=== PATIENT | male | born 1945 | race African-American/Black ===

== ENCOUNTER 2018-03-18 09:33 | Emergency (ER) | payer MEDICARE, MEDICAID ==
[~2018-03-18] VITALS: Ht 165.1 cm; Wt 88.5 kg
[2018-03-18 09:39] VITALS: BP 140/77
== END 2018-03-18 11:05 | disposition home or self-care (01) ==
LOC: ER 10:03
DX: R05 Cough (principal); Z77.120 Contact with and (suspected) exposure to mold (toxic); I10 Essential (primary) hypertension; J44.9 Chronic obstructive pulmonary disease, unspecified; F17.200 Nicotine dependence, unspecified, uncomplicated
CPT/HCPCS: 71046; 99283

== ENCOUNTER 2020-01-19 11:22 | Emergency (ER) | payer MEDICARE, MEDICAID ==
[~2020-01-19] VITALS: Ht 162.6 cm; Wt 82.0 kg
[2020-01-19 11:37] VITALS: BP 132/81
== END 2020-01-19 15:29 | disposition home or self-care (01) ==
LOC: ER 11:22
DX: Z04.89 Encounter for examination and observation for other specified reasons (principal); E78.00 Pure hypercholesterolemia, unspecified; F03.90 Unspecified dementia, unspecified severity, without behavioral disturbance, psychotic disturbance, mood disturbance, and anxiety; I10 Essential (primary) hypertension; J44.9 Chronic obstructive pulmonary disease, unspecified; Z86.718 Personal history of other venous thrombosis and embolism; Z79.01 Long term (current) use of anticoagulants; Z87.891 Personal history of nicotine dependence
CPT/HCPCS: 82962; 99281

== ENCOUNTER 2021-06-11 21:41 | Inpatient (IN) | payer MEDICARE, MEDICAID ==
[~2021-06-11] VITALS: Ht 162.6 cm; Wt 85.9 kg
[2021-06-11 22:54] LABS: BASOPHILS % 0.8 % (0.0-2.0); EOSINOPHILS % 0.9 % (0.0-5.0); HEMATOCRIT. 32.8 % (42.0-52.0); HEMOGLOBIN. 10.7 g/dL (14.0-18.0); MEAN CORPUSCULAR HEMOGLOBIN 24.8 pg (28.0-32.0); MEAN CORPUSCULAR VOLUME 76.2 fL (80.0-94.0); MONOCYTES % 10.2 % (2.0-8.0); NEUTROPHILS % 67.1 % (40.0-76.0); PLATELET 257 x1000/uL (130-400); RED CELL DISTRIBUTION WIDTH 17.8 % (11.6-14.6)
[2021-06-11 23:04] LABS: CHLORIDE 102 mEq/L (98-107)
[2021-06-11 23:08] LABS: ETHANOL BLOOD < 10 mg/dL
[2021-06-11] MEDS ORDERED: IOHEXOL-350 100 ML BOTTLE ONE (23:11)
[2021-06-11] MEDS ORDERED: ASPIRIN 325MG TABLET PO ONE (23:15)
[2021-06-11 23:41] LABS: CLARITY URINE CLEAR (CLEAR); COLOR URINE YELLOW (YELLOW); KETONES URINE NEGATIVE (NEGATIVE); LEUKOCYTE ESTERASE URINE NEGATIVE (NEGATIVE); NITRITE URINE NEGATIVE (NEGATIVE); OCCULT BLOOD URINE NEGATIVE (NEGATIVE); PROTEIN URINE TRACE (NEGATIVE); SPECIFIC GRAVITY URINE 1.061 (1.005-1.030)
[2021-06-12 00:03] LABS: *BARBITURATES SCREEN URINE NEGATIVE (NEGATIVE); *BENZODIAZEPINES SCREEN URINE NEGATIVE (NEGATIVE)
[2021-06-12 00:04] LABS: *AMPHETAMINES SCREEN URINE NEGATIVE (NEGATIVE); *COCAINE SCREEN URINE NEGATIVE (NEGATIVE); CANNABINOID URINE SCREEN PRESUMTIVE POSITIVE (NEGATIVE); METHADONE URINE SCREEN NEGATIVE (NEGATIVE); OPIATES URINE SCREEN PRESUMTIVE POSITIVE (NEGATIVE); PHENCYCLIDINE URINE SCREEN NEGATIVE (NEGATIVE)
[2021-06-12 04:52] VITALS: BP 104/64
[2021-06-12 04:53] VITALS: BP 104/64
[2021-06-12] MEDS ORDERED: BENA1TAB19 PO (04:59)
[2021-06-12] MEDS ORDERED: TAMS-11 PO (04:59)
[2021-06-12] MEDS ORDERED: PANT20TA17 PO (04:59)
[2021-06-12] MEDS ORDERED: OXYC-582 PO (04:59)
[2021-06-12] MEDS ORDERED: ATOR20TA65 PO (04:59)
[2021-06-12] MEDS ORDERED: GABA-532 PO (04:59)
[2021-06-12] MEDS ORDERED: FLUT16SP15 INH (04:59)
[2021-06-12] MEDS ORDERED: DONE5TAB33 PO (04:59)
[2021-06-12] MEDS ORDERED: SALM50DI IH (04:59)
[2021-06-12] MEDS ORDERED: OXYC30TA2 PO (04:59)
[2021-06-12] MEDS ORDERED: CLOP75TA33 PO (04:59)
[2021-06-12] MEDS ORDERED: CLONIDINE 0.1MG TABLET PO PRN (07:00)
[2021-06-12] MEDS ORDERED: GUAIFENESIN 200MG/10ML SUGAR FREE UDC PO PRN (07:00)
[2021-06-12] MEDS ORDERED: ACETAMINOPHEN 650MG SUPP PR PRN ×2 (07:00)
[2021-06-12] MEDS ORDERED: IPRATROPIUM/ALBUTEROL 0.5-3(2.5)MG/3ML NEB HHN PRN (07:00)
[2021-06-12] MEDS ORDERED: ACETAMINOPHEN 325MG TABLET PO PRN ×2 (07:00)
[2021-06-12] MEDS ORDERED: DOCUSATE SODIUM 100MG CAPSULE PO PRN (07:00)
[2021-06-12] MEDS ORDERED: MAGNESIUM/ALUMINUM HYDROXIDE/SIMETHICONE 30ML UDC PO PRN (07:00)
[2021-06-12] MEDS ORDERED: ONDANSETRON HCL 4MG/2ML INJ IV PRN (07:00)
[2021-06-12] MEDS ORDERED: ENOXAPARIN 40MG/0.4ML SYR SUBCUT SCH (09:00)
[2021-06-12 10:40] LABS: BASOPHILS % 0.4 % (0.0-2.0); EOSINOPHILS % 0.4 % (0.0-5.0); HEMATOCRIT. 34.8 % (42.0-52.0); HEMOGLOBIN. 11.6 g/dL (14.0-18.0); LYMPHOCYTES % 13.8 % (20.0-50.0); MEAN CORPUSCULAR HEMOGLOBIN 24.9 pg (28.0-32.0); MEAN CORPUSCULAR VOLUME 74.9 fL (80.0-94.0); MONOCYTES % 4.4 % (2.0-8.0); PLATELET 282 x1000/uL (130-400); RED BLOOD CELL COUNT 4.64 mill/uL (4.7-6.1); RED CELL DISTRIBUTION WIDTH 17.8 % (11.6-14.6)
[2021-06-12 12:21] LABS: CHLORIDE 105 mEq/L (98-107)
[2021-06-12 12:29] LABS: HDL CHOLESTEROL 32 mg/dL (40-59); LDL CHOLESTEROL 54 mg/dL (5-100)
[2021-06-12 12:30] LABS: CREATINE KINASE 173 IU/L (39-308)
[2021-06-13] MEDS ORDERED: ASPIRIN 81MG TABLET PO SCH (09:00)
== END 2021-06-12 15:50 | disposition left against medical advice (07) | DRG 69 ==
LOC: ER 21:41 → 6WST 06-12 02:26 → EDBEDREQ 06-12 02:29 → EDBEDREQSVC 06-12 02:29 → EDBEDREQTM 06-12 02:29 → EDBEDREQDT 06-12 02:29 → ENRESERV 06-12 03:58
PROVIDERS: ADMIT Family Medicine Adult Medicine; ATTEND Family Medicine Adult Medicine
DX: G45.9 Transient cerebral ischemic attack, unspecified (principal); G93.41 Metabolic encephalopathy; R47.01 Aphasia; G81.91 Hemiplegia, unspecified affecting right dominant side; R47.1 Dysarthria and anarthria; I10 Essential (primary) hypertension; E78.00 Pure hypercholesterolemia, unspecified; F03.90 Unspecified dementia, unspecified severity, without behavioral disturbance, psychotic disturbance, mood disturbance, and anxiety; J44.9 Chronic obstructive pulmonary disease, unspecified; F17.210 Nicotine dependence, cigarettes, uncomplicated; D64.9 Anemia, unspecified; M54.50 Low back pain, unspecified; F12.90 Cannabis use, unspecified, uncomplicated; R53.81 Other malaise; I25.10 Atherosclerotic heart disease of native coronary artery without angina pectoris; E78.5 Hyperlipidemia, unspecified; G89.4 Chronic pain syndrome; E11.65 Type 2 diabetes mellitus with hyperglycemia; R26.89 Other abnormalities of gait and mobility; F10.10 Alcohol abuse, uncomplicated; Y90.9 Presence of alcohol in blood, level not specified; N40.0 Benign prostatic hyperplasia without lower urinary tract symptoms; R47.81 Slurred speech; Z86.73 Personal history of transient ischemic attack (TIA), and cerebral infarction without residual deficits; Z79.891 Long term (current) use of opiate analgesic; Z79.899 Other long term (current) drug therapy; Z95.5 Presence of coronary angioplasty implant and graft; Z86.718 Personal history of other venous thrombosis and embolism; M79.609 Pain in unspecified limb; F19.10 Other psychoactive substance abuse, uncomplicated
CPT/HCPCS: 36415; 70496; 70498; 70551; 71045; 80053; 80061; 80305; 80320; 81003; 82550; 82962; 84443; 84484; 85025; 93005; 93306; 93970; 97162; 97166; 99291; J1650; Q9967; G0480

== ENCOUNTER 2021-12-09 14:08 | Emergency (ER) | payer OTHER, MEDICAID ==
[~2021-12-09] VITALS: Ht 172.7 cm; Wt 82.0 kg
[~2021-12-09 14:08] MED LIST: ATOR20TA65 PO; BENA1TAB19 PO; CLOP75TA33 PO; DONE5TAB33 PO; FLUT16SP15 INH; GABA-532 PO; OXYC-582 PO; OXYC30TA2 PO; PANT20TA17 PO; SALM50DI IH; TAMS-11 PO
[2021-12-09 14:11] VITALS: BP 116/60
[2021-12-09] MEDS ORDERED: SODIUM CHLORIDE 0.9% 500 ML IV ONE (15:00)
[2021-12-09 15:21] LABS: BASOPHILS % 0.6 % (0.0-2.0); EOSINOPHILS % 0.8 % (0.0-5.0); HEMATOCRIT. 34.7 % (42.0-52.0); LYMPHOCYTES % 17.4 % (20.0-50.0); MEAN CORPUSCULAR HEMOGLOBIN 24.3 pg (28.0-32.0); MEAN CORPUSCULAR VOLUME 76.6 fL (80.0-94.0); MEAN PLATELET VOLUME 7.9 fl (7.4-10.4); NEUTROPHILS % 70.2 % (40.0-76.0); PLATELET 289 x1000/uL (130-400); RED BLOOD CELL COUNT 4.54 mill/uL (4.7-6.1); RED CELL DISTRIBUTION WIDTH 17.9 % (11.6-14.6)
[2021-12-09 15:25] LABS: CHLORIDE 106 mEq/L (98-107)
== END 2021-12-09 18:34 | disposition left against medical advice (07) ==
LOC: ER 14:08 → CANBEDREQ 18:27 → ER 18:34
DX: T45.521A Poisoning by antithrombotic drugs, accidental (unintentional), initial encounter (principal); R55 Syncope and collapse; I95.9 Hypotension, unspecified; Y92.29 Other specified public building as the place of occurrence of the external cause; F14.20 Cocaine dependence, uncomplicated; Z86.73 Personal history of transient ischemic attack (TIA), and cerebral infarction without residual deficits; Z99.3 Dependence on wheelchair; Z79.899 Other long term (current) drug therapy
CPT/HCPCS: 36415; 71045; 80053; 84484; 85025; 93005; 96360; 99285

== ENCOUNTER 2023-02-15 10:44 | Emergency (ER) | payer MEDICARE, MEDICAID ==
[~2023-02-15] VITALS: Ht 177.8 cm; Wt 82.0 kg
[2023-02-15 10:46] VITALS: TEMP 98.2; O2SAT 98
[2023-02-15] MEDS ORDERED: ONDANSETRON HCL 4MG/2ML INJ IV STA (11:09)
[2023-02-15] MEDS ORDERED: SODIUM CHLORIDE 0.9% 1,000 ML IV ONE (11:15)
[2023-02-15 11:17] VITALS: BP 101/59; PULSE 96; RESP 14
[2023-02-15 13:07] LABS: BASOPHILS % 0.5 % (0.0-2.0); DIFFERENTIAL COMMENT 0; EOSINOPHILS % 0.5 % (0.0-5.0); HEMATOCRIT. 25.1 % (42.0-52.0); HEMOGLOBIN. 7.6 g/dL (14.0-18.0); LYMPHOCYTES % 8.7 % (20.0-50.0); MEAN CORPUSCULAR HEMOGLOBIN 21.4 pg (28.0-32.0); MEAN CORPUSCULAR HGB CONC 30.3 g/dL (31.0-37.0); MEAN CORPUSCULAR VOLUME 70.8 fL (80.0-94.0); MEAN PLATELET VOLUME 7.8 fl (7.4-10.4); MONOCYTES % 7.6 % (2.0-8.0); NEUTROPHILS % 82.7 % (40.0-76.0); PLATELET 326 x1000/uL (130-400); RED BLOOD CELL COUNT 3.55 mill/uL (4.7-6.1); RED CELL DISTRIBUTION WIDTH 19.3 % (11.6-14.6); WHITE BLOOD COUNT 9.9 x1000/uL (4.5-11.0)
[2023-02-15 13:15] LABS: ALANINE AMINOTRANSFERASE 14 IU/L (10-49); ALBUMIN 4.2 g/dL (3.2-4.8); ASPARTATE AMINOTRANSFERASE 20 IU/L (<34); BILIRUBIN TOTAL 0.4 mg/dL (0.1-1.0); CALCIUM 9.9 mg/dL (8.7-10.4); CARBON DIOXIDE 27 mEq/L (21-32); CHLORIDE 103 mEq/L (98-107); CREATININE 1.2 mg/dL (0.6-1.3); GLUCOSE 95 mg/dL (70-105); POTASSIUM 4.2 mEq/L (3.5-5.1); PROTEIN TOTAL 7.2 g/dL (6.0-8.3); SODIUM 137 mEq/L (136-145); TROPONIN I HIGH SENSITIVITY 9 ng/L (3.0-53); UREA NITROGEN BLOOD 24 mg/dL (9-23)
[2023-02-15 13:24] LABS: ETHANOL BLOOD < 10 mg/dL (<10)
== END 2023-02-15 13:02 | disposition left against medical advice (07) ==
LOC: ER 12:11
DX: R53.1 Weakness (principal); E86.0 Dehydration; E78.00 Pure hypercholesterolemia, unspecified; R41.0 Disorientation, unspecified; J44.9 Chronic obstructive pulmonary disease, unspecified; I11.9 Hypertensive heart disease without heart failure; I25.10 Atherosclerotic heart disease of native coronary artery without angina pectoris; F03.90 Unspecified dementia, unspecified severity, without behavioral disturbance, psychotic disturbance, mood disturbance, and anxiety; I82.409 Acute embolism and thrombosis of unspecified deep veins of unspecified lower extremity; Z86.73 Personal history of transient ischemic attack (TIA), and cerebral infarction without residual deficits
CPT/HCPCS: 80053; 80320; 83880; 85025; 87040; 84484; 36415; 71045; 70450; 74176; 93005; 99285; J7030; G0480

== ENCOUNTER 2023-09-26 18:06 | Emergency (ER) | payer MEDICAID ==
[~2023-09-26] VITALS: Ht 165.1 cm; Wt 75.0 kg
[2023-09-26 18:07] VITALS: O2SAT 98
[2023-09-26 18:55] LABS: BASOPHILS % 1.5 % (0.0-2.0); EOSINOPHILS % 1.2 % (0.0-5.0); HEMATOCRIT. 31.1 % (42.0-52.0); HEMOGLOBIN. 9.6 g/dL (14.0-18.0); LYMPHOCYTES % 24.4 % (20.0-50.0); MEAN CORPUSCULAR HEMOGLOBIN 20.7 pg (28.0-32.0); MEAN CORPUSCULAR VOLUME 66.8 fL (80.0-94.0); MEAN PLATELET VOLUME 8.5 fl (7.4-10.4); MONOCYTES % 11.1 % (2.0-8.0); NEUTROPHILS % 61.8 % (40.0-76.0); PLATELET 295 x1000/uL (130-400); RED BLOOD CELL COUNT 4.65 mill/uL (4.7-6.1); RED CELL DISTRIBUTION WIDTH 26.1 % (11.6-14.6)
[2023-09-26 18:56] LABS: ADD RBC MORPHOLOGY YES; DIFFERENTIAL COMMENT 1
[2023-09-26 19:00] LABS: CHLORIDE 106 mEq/L (98-107); POTASSIUM 4.3 mEq/L (3.5-5.1); SODIUM 136 mEq/L (136-145)
[2023-09-26] MEDS: SODIUM CHLORIDE 0.9% 1,000 ML IV ONE (19:00)
[2023-09-26] MEDS: ONDANSETRON HCL 4MG/2ML INJ IV STA (19:00)
[2023-09-26] MEDS: MORPHINE SULFATE 4 MG/ML INJ (FOR IV/IM USE) IV STA (19:00)
[2023-09-26 19:01] LABS: CARBON DIOXIDE 24 mEq/L (21-32)
[2023-09-26 19:02] LABS: CALCIUM 9.4 mg/dL (8.7-10.4)
[2023-09-26 19:06] LABS: CREATININE 1.1 mg/dL (0.6-1.3); GLUCOSE 93 mg/dL (70-105)
[2023-09-26 19:07] LABS: UREA NITROGEN BLOOD 8 mg/dL (9-23)
[2023-09-26 19:24] LABS: INR 1.1
[2023-09-26 19:54] LABS: CLARITY URINE CLEAR (CLEAR); COLOR URINE YELLOW (YELLOW); GLUCOSE URINE NEGATIVE (NEGATIVE); KETONES URINE NEGATIVE (NEGATIVE); LEUKOCYTE ESTERASE URINE NEGATIVE (NEGATIVE); NITRITE URINE NEGATIVE (NEGATIVE); OCCULT BLOOD URINE NEGATIVE (NEGATIVE); PH URINE 6.5 (4.5-8.0); PROTEIN URINE NEGATIVE (NEGATIVE); SPECIFIC GRAVITY URINE 1.007 (1.005-1.030); UROBILINOGEN URINE 0.2 E.U./dL (0.2-1.0)
[2023-09-26 20:19] LABS: HYPOCHROMASIA 2+; MICROCYTOSIS 3+; PLATELET ESTIMATE NORMAL
[2023-09-26 21:40] VITALS: BP 127/64; PULSE 95; RESP 25; TEMP 98.7
[2023-09-26] MEDS ORDERED: ONDANSETRON HCL 4MG/2ML INJ IV PRN (21:45)
[2023-09-26] MEDS ORDERED: ACETAMINOPHEN 325MG TABLET PO PRN ×2 (21:45)
[2023-09-26] MEDS ORDERED: MAGNESIUM/ALUMINUM HYDROXIDE/SIMETHICONE 30ML UDC PO PRN (21:45)
[2023-09-26] MEDS ORDERED: DEXT 5%/0.9% NACL 1,000 ML IV SCH (21:45)
[2023-09-27 09:44] LABS: *AMPHETAMINES SCREEN URINE PRESUMPTIVE POSITIVE (NEGATIVE); *BARBITURATES SCREEN URINE NEGATIVE (NEGATIVE); *BENZODIAZEPINES SCREEN URINE NEGATIVE (NEGATIVE); *COCAINE SCREEN URINE NEGATIVE (NEGATIVE)
[2023-09-27 09:45] LABS: CANNABINOID URINE SCREEN PRESUMPTIVE POSITIVE (NEGATIVE); ECSTASY MDMA SCREEN URINE NEGATIVE (NEGATIVE); METHADONE URINE SCREEN NEGATIVE (NEGATIVE); OPIATES URINE SCREEN NEGATIVE (NEGATIVE); PHENCYCLIDINE URINE SCREEN NEGATIVE (NEGATIVE)
== END 2023-09-26 21:40 | disposition home or self-care (01) ==
LOC: ER 18:06 → EDBEDREQ 21:13 → EDBEDREQTM 21:13 → ER 21:40
DX: R10.30 Lower abdominal pain, unspecified (principal); J44.9 Chronic obstructive pulmonary disease, unspecified; F03.90 Unspecified dementia, unspecified severity, without behavioral disturbance, psychotic disturbance, mood disturbance, and anxiety; E78.00 Pure hypercholesterolemia, unspecified; I10 Essential (primary) hypertension; I25.10 Atherosclerotic heart disease of native coronary artery without angina pectoris; Z86.73 Personal history of transient ischemic attack (TIA), and cerebral infarction without residual deficits; Z79.899 Other long term (current) drug therapy
CPT/HCPCS: 99284; 96374; 96361; 96375; 80305; 80048; 81003; 83690; 85025; 85610; 36415; J2405; J2270; J7030

== ENCOUNTER 2024-02-17 22:41 | Emergency (ER) | payer MEDICAID ==
[~2024-02-17] VITALS: Ht 167.6 cm; Wt 73.0 kg
[~2024-02-17 22:41] MED LIST changes: +GABA-1180 PO; -GABA-532 PO
[2024-02-17 22:53] VITALS: O2SAT 97
[2024-02-17] MEDS: PANTOPRAZOLE SODIUM 40 MG/VIAL IV STA (22:55)
[2024-02-17] MEDS: SODIUM CHLORIDE 0.9% 1,000 ML IV ONE (23:00)
[2024-02-18 00:27] LABS: BASOPHILS % 0.9 % (0.0-2.0); EOSINOPHILS % 1.2 % (0.0-5.0); HEMATOCRIT. 36.4 % (42.0-52.0); HEMOGLOBIN. 11.1 g/dL (14.0-18.0); LYMPHOCYTES % 17.8 % (20.0-50.0); MEAN CORPUSCULAR HEMOGLOBIN 21.3 pg (28.0-32.0); MEAN CORPUSCULAR HGB CONC 30.5 g/dL (31.0-37.0); MEAN CORPUSCULAR VOLUME 69.7 fL (80.0-94.0); MEAN PLATELET VOLUME 8.6 fl (7.4-10.4); NEUTROPHILS % 69.1 % (40.0-76.0); PLATELET 351 x1000/uL (130-400); RED BLOOD CELL COUNT 5.22 mill/uL (4.7-6.1); RED CELL DISTRIBUTION WIDTH 22.4 % (11.6-14.6); WHITE BLOOD COUNT 6.2 x1000/uL (4.5-11.0)
[2024-02-18 00:32] LABS: DIFFERENTIAL COMMENT 1
[2024-02-18 00:33] LABS: ADD RBC MORPHOLOGY YES
[2024-02-18 00:35] LABS: CHLORIDE 107 mEq/L (98-107); POTASSIUM 4.1 mEq/L (3.5-5.1); SODIUM 135 mEq/L (136-145)
[2024-02-18 00:36] LABS: CALCIUM 9.4 mg/dL (8.7-10.4); CARBON DIOXIDE 24 mEq/L (21-32)
[2024-02-18 00:41] LABS: CREATININE 1.2 mg/dL (0.6-1.3); GLUCOSE 118 mg/dL (70-105); UREA NITROGEN BLOOD 14 mg/dL (9-23)
[2024-02-18 00:42] LABS: TROPONIN I HIGH SENSITIVITY 17 ng/L (3.0-53)
[2024-02-18 00:43] LABS: INR 1.1; PROTHROMBIN TIME 12.3 sec (9.6-11.0)
[2024-02-18 00:51] LABS: CLARITY URINE CLEAR (CLEAR); COLOR URINE YELLOW (YELLOW); GLUCOSE URINE NEGATIVE (NEGATIVE); KETONES URINE NEGATIVE (NEGATIVE); LEUKOCYTE ESTERASE URINE NEGATIVE (NEGATIVE); NITRITE URINE NEGATIVE (NEGATIVE); OCCULT BLOOD URINE NEGATIVE (NEGATIVE); PH URINE 5.5 (4.5-8.0); PROTEIN URINE NEGATIVE (NEGATIVE); SPECIFIC GRAVITY URINE 1.014 (1.005-1.030); UROBILINOGEN URINE 0.2 E.U./dL (0.2-1.0)
[2024-02-18 01:27] LABS: MICROCYTOSIS 3+
[2024-02-18 01:28] LABS: HYPOCHROMASIA 2+; PLATELET ESTIMATE NORMAL
[2024-02-18 04:54] LABS: TROPONIN I HIGH SENSITIVITY 13 ng/L (3.0-53)
[2024-02-18] MEDS ORDERED: MAGNESIUM/ALUMINUM HYDROXIDE/SIMETHICONE 30ML UDC PO PRN (09:30)
[2024-02-18] MEDS ORDERED: ONDANSETRON HCL 4MG/2ML INJ IV PRN (09:30)
[2024-02-18] MEDS ORDERED: ACETAMINOPHEN 325MG TABLET PO PRN (09:30)
[2024-02-18] MEDS ORDERED: DOCUSATE SODIUM 100MG CAPSULE PO PRN (09:30)
[2024-02-18] MEDS ORDERED: IPRATROPIUM/ALBUTEROL 0.5-3(2.5)MG/3ML NEB NEB PRN (09:30)
[2024-02-18] MEDS: SODIUM CHLORIDE 0.9% 1,000 ML IV SCH (10:15)
[2024-02-18] MEDS: PIPERACILLIN/TAZO 3.375G/50ML 50 ML IV SCH (11:20)
[2024-02-18] MEDS: ENOXAPARIN 40MG/0.4ML SYR SUBCUT SCH (11:21)
[2024-02-18 15:15] VITALS: BP 127/66; PULSE 72; RESP 19; TEMP 36.72516; O2SAT 96
[2024-02-18] MEDS ORDERED: PIPERACILLIN/TAZO 3.375G/100ML 100 ML IV SCH (20:00)
[2024-02-19 09:27] LABS: *AMPHETAMINES SCREEN URINE NEGATIVE (NEGATIVE); *BARBITURATES SCREEN URINE NEGATIVE (NEGATIVE); *BENZODIAZEPINES SCREEN URINE NEGATIVE (NEGATIVE); *COCAINE SCREEN URINE NEGATIVE (NEGATIVE); METHADONE URINE SCREEN NEGATIVE (NEGATIVE)
[2024-02-19 09:28] LABS: CANNABINOID URINE SCREEN PRESUMPTIVE POSITIVE (NEGATIVE); ECSTASY MDMA SCREEN URINE NEGATIVE (NEGATIVE); OPIATES URINE SCREEN NEGATIVE (NEGATIVE); PHENCYCLIDINE URINE SCREEN NEGATIVE (NEGATIVE)
== END 2024-02-18 17:09 | disposition left against medical advice (07) ==
LOC: ER 22:41 → EDBEDREQ 02-18 02:49 → EDBEDREQDT 02-18 02:49 → EDBEDREQTM 02-18 02:49 → CMPBEDREQ 02-18 13:49 → ER 02-18 17:09
DX: I95.9 Hypotension, unspecified (principal); I11.0 Hypertensive heart disease with heart failure; I25.2 Old myocardial infarction; I50.9 Heart failure, unspecified; Z79.899 Other long term (current) drug therapy; Z86.73 Personal history of transient ischemic attack (TIA), and cerebral infarction without residual deficits
CPT/HCPCS: 99291; 96366; 96365; 80048; 81003; 83605; 83690; 85025; 85610; 86850; 86900; 86901; 84484; 84145; 71045; 93970; 96367; 96361; 80305; 93005; 96368; 96372; 36415; J2470; J7030; J1650; J2543